=== PATIENT | male | born 1955 | race Caucasian/White ===

== ENCOUNTER → 2024-05-22 08:47 | Outpatient (REF) | payer MEDICARE, OTHER, SELFPAY | LOC: HWRAD 08:47 | PROVIDERS: ATTENDING PHYSICIAN Nurse Practitioner Primary Care; FAMILY PHYSICIAN Internal Medicine | DX: R22.1 Localized swelling, mass and lump, neck (principal); F17.209 Nicotine dependence, unspecified, with unspecified nicotine-induced disorders; Z85.46 Personal history of malignant neoplasm of prostate | CPT/HCPCS: 70491; Q9967 ==